=== PATIENT | female | born 1980 | race African-American/Black ===

== ENCOUNTER 2017-07-04 16:20 | Outpatient (CLI) | END 2017-07-04 16:21 | disposition home or self-care (01) | LOC: AMBL 16:20 | DX: R56.9 Unspecified convulsions (principal); S00.03XA Contusion of scalp, initial encounter; S09.93XA Unspecified injury of face, initial encounter; R61 Generalized hyperhidrosis; W19.XXXA Unspecified fall, initial encounter ==